=== PATIENT | male | born 2000 | race Caucasian/White ===

== ENCOUNTER 2020-03-03 23:00 | Emergency (ER) | payer BC ==
--- NOTE | 2020-03-03 23:27 | ER Document Report ---
ED Medical Screen (RME) - General Chief Complaint: Dog Bite Stated Complaint: DOG BITE TO LEFT EYE/EYELID Time Seen by Provider: 03/03/20 23:20 Primary Care Provider: JOSH SIN NP [Primary Care Provider] - Follow up as needed Notes: Patient is a 20-year-old male who presents emergency department with a dog bite to his left eyelid and below his left eye. Patient states that he got a foster dog today and the dog was laying in his lap and the dog was going to fall off the couch and when he went to go grab him the dog ended up putting him in the face. As far as the patient knows, the patient is up-to-date on their rabies vaccine. Patient is not quite sure when his last tetanus shot was. Patient denies any vision loss or vision changes. Exam: Lacerations noted to left eyelid, 2 others to his left cheek, inferior to left eye. I have greeted and performed a rapid initial assessment of this patient. A comprehensive ED assessment and evaluation of the patient, analysis of test results and completion of medical decision making process will be conducted by an additional ED providers. - Related Data Allergies/Adverse Reactions: No Known Allergies Allergy (Unverified 03/03/20 23:19) Past Medical History - Social History Frequency of alcohol use: None Drug Abuse: None Physical Exam - Vital signs Vitals: Temp Pulse Resp BP Pulse Ox 97.8 F 64 19 139/79 H 99 03/03/20 23:18 03/03/20 23:18 03/03/20 23:18 03/03/20 23:18 03/03/20 23:18 Course - Vital Signs Vital signs: Temp Pulse Resp BP Pulse Ox 97.8 F 64 19 139/79 H 99 03/03/20 23:18 03/03/20 23:18 03/03/20 23:18 03/03/20 23:18 03/03/20 23:18 Doctor's Discharge - Discharge Referrals: JOSH SIN NP [Primary Care Provider] - Follow up as needed
[2020-03-04] MEDS ORDERED: DIPH/PERTUSS(ACELL)/TETANUS VAC/PF 0.5 ML SYR (>=10YO) IM ONE (00:40)
[2020-03-04] MEDS ORDERED: LIDOCAINE 1% INJ-PF (10 MG/ML) 30 ML SDV INJ ONE (00:41)
--- NOTE | 2020-03-04 00:48 | ER Document Report ---
ED General - General Chief Complaint: Dog Bite Stated Complaint: DOG BITE TO LEFT EYE/EYELID Time Seen by Provider: 03/03/20 23:20 Primary Care Provider: JOSH SIN NP [Primary Care Provider] - Follow up as needed Mode of Arrival: Ambulatory Information source: Patient - HPI Notes: Patient is a 20-year-old male with no significant medical history who presents for dog bite that happened earlier today. Patient states that he got a new foster dog today. The dog bit his face, particularly his left eyelid and area under his eye. He denies any blurred vision or eye pain. Patient states rabies vaccines are up-to-date. He cannot recall when his last tetanus shot was. Patient denies tobacco, alcohol and recreational drug use. - Related Data Allergies/Adverse Reactions: No Known Allergies Allergy (Unverified 03/03/20 23:19) Past Medical History - General Information source: Patient - Social History Smoking Status: Never Smoker Frequency of alcohol use: None Drug Abuse: None Family History: Reviewed & Not Pertinent Patient has homicidal ideation: No Review of Systems - Review of Systems Constitutional: No symptoms reported EENT: See HPI Cardiovascular: No symptoms reported Respiratory: No symptoms reported Gastrointestinal: No symptoms reported Genitourinary: No symptoms reported Male Genitourinary: No symptoms reported Musculoskeletal: No symptoms reported Skin: See HPI Hematologic/Lymphatic: No symptoms reported Neurological/Psychological: No symptoms reported Physical Exam - Vital signs Vitals: Temp Pulse Resp BP Pulse Ox 97.8 F 64 19 139/79 H 99 03/03/20 23:18 03/03/20 23:18 03/03/20 23:18 03/03/20 23:18 03/03/20 23:18 - Notes Notes: PHYSICAL EXAMINATION: GENERAL: Well-appearing, well-nourished and in no acute distress. HEAD: Atraumatic, normocephalic. EYES: Very small skin flap to the lateral aspect of the left upper eyelid. 2cm abrasion to the left undereye as well as a 2cm laceration with minimal separation. Sclera anicteric, conjunctiva are normal. ENT: Moist mucous membranes. NECK: Normal range of motion LUNGS: Normal work of breathing HEART: 2+ radial pulses bilaterally EXTREMITIES: no pitting or edema. No cyanosis. NEUROLOGICAL: No focal neurological deficits. Moves all extremities spontane ously and on command. PSYCH: Normal mood, normal affect. SKIN: Warm, Dry, normal turgor, no rashes or lesions noted. Course - Re-evaluation Re-evalutation: Patient is a 20-year-old male who presents with a dog bite to his left eyelid and under eye. Patient's rabies vaccine is up-to-date but is tetanus vaccine is not. He received a tetanus vaccine today here in the ED. Vital signs are within normal limits. On exam, very small skin flap to the lateral aspect of the upper eyelid. 2 cm abrasion and a 2 cm laceration to the area just underneath the eye. Single stitch placed in the upper eyelid skin flap using 6- 0 Ethilon. Patient tolerated procedure well. First dose of Augmentin given here in ED. Patient will be sent home with a prescription for Augmentin. Return precautions and follow-up instructions given. Patient understands and agrees with plan. - Vital Signs Vital signs: Temp Pulse Resp BP Pulse Ox 97.8 F 64 19 139/79 H 99 03/03/20 23:18 03/03/20 23:18 03/03/20 23:18 03/03/20 23:18 03/03/20 23:18 Procedures - Laceration/Wound Repair Left Face Wound length (cm): 0.5 Wound's Depth, Shape: Superficial, Flap Laceration pre-procedure: Sterile PPE donned, Shur-Clens applied Wound Repaired With: Sutures Suture Size/Type: 6:0, Ethilon Number of Sutures: 1 Complications: No Notes: The wound is 0.5 cm flap to the left upper eyelid. The wound was copiously irrigated with normal saline and surgical cleanser. The wound was explored for foreign bodies and none were found. The wound was prepped and draped in the normal sterile fashion. The wound was not anesthetized. The edges were reapproximated using 6-0 Ethilon. Bleeding was well controlled and the patient tolerated the procedure well. Discharge - Discharge Clinical Impression: Dog bite Qualifiers: Encounter type: initial encounter Qualified Code(s): W54.0XXA - Bitten by dog, initial encounter Eyelid laceration Qualifiers: Encounter type: initial encounter Laterality: left Qualified Code(s): S01.112A - Laceration without foreign body of left eyelid and periocular area, initial encounter Condition: Stable Disposition: HOME, SELF-CARE Additional Instructions: Animal Bites Animal bites are often heavily contaminated with bacteria. In spite of thorough cleansing and proper treatment, these wounds frequently become infected. Bite wounds of the hands are especially prone to complications. Bites are dressed, if possible. Large wounds may require suturing after internal cleansing. Because of infection risk, some large wounds must remain unstitched. Your doctor is trained to advise you on the best treatment for your bite. Call the doctor at once if the wound becomes red, swollen, warm, incr easingly painful, or if it begins to drain. Danger signs also include red streaks up the involved extremity, swollen glands in the groin or under the arm, or fever and chills. The risk of rabies from domestic animals is very low. Bats, sick animals, and wild animals may expose you to rabies. The physician, or the health department, will inform you if you will need to receive the rabies vaccine. Laceration Care Your laceration has been sutured to keep the skin edges aligned during healing. The time of suture removal depends on the nature and location of your cut. Please follow the care instructions the doctor has outlined for you and return for further care, according to the schedule you've been given. Keep the wound and dressing clean. Unless you were told otherwise, you may shower daily, blotting the wound dry with a clean, unused towel. At other times, If the dressing gets wet or blood soaked, remove it and blot the wound dry, then reapply a new dressing. Unless you were instructed otherwise, dressings should be changed at least daily. If any signs of infection occur (swelling, redness, increasing tenderness, red streaks, tender lumps in the armpit or groin above the laceration, or fever), see the doctor immediately. Prescriptions: Amoxicillin/Potassium Clav [Augmentin 875-125 Tablet] 1 tab PO Q12 7 Days #14 tablet Referrals: JOSH SIN NP [Primary Care Provider] - Follow up as needed
[2020-03-04] MEDS ORDERED: AMOXICILLIN TR/POT CLAVULANATE 875-125 MG TAB PO ONE (01:04)
[2020-03-04 02:10] VITALS: BP 135/69
== END 2020-03-04 02:11 | disposition home or self-care (01) ==
LOC: ER 23:00
DX: S01.152A Open bite of left eyelid and periocular area, initial encounter (principal); S00.81XA Abrasion of other part of head, initial encounter; W54.0XXA Bitten by dog, initial encounter; Z23 Encounter for immunization
CPT/HCPCS: 99283; 96372; 90715; 12011; J3490 ×2